=== PATIENT | female | born 1940 ===

== ENCOUNTER 2018-02-01 06:59 | Day surgery (SDC) | payer MEDICARE, BC ==
[2018-01-17 09:36] VITALS: BMI 26.4
[2018-02-01] MEDS ORDERED: ceFAZolin 1 gm in NS 1 GM/100 ML BAG IVPB ONE (07:19)
[2018-02-01] MEDS ORDERED: Lidocaine/Epinephrine 1% 1:100000 10 ML IJ ONE (07:20)
[2018-02-01] MEDS ORDERED: EPINEPHrine 1:1000 Nasal Sol(30mL) ONE (07:20)
[2018-02-01] MEDS ORDERED: Propofol 10 mg/ml Inj (20 ML) ONE (09:42)
[2018-02-01] MEDS ORDERED: Midazolam 2 MG/2 ML VIAL ONE (09:43)
[2018-02-01] MEDS ORDERED: Neostigmine Methylsulfate 3mg/3ml Syringe IV ONE (09:43)
[2018-02-01] MEDS ORDERED: Rocuronium 10 mg/ml (5 ml) ONE (09:43)
[2018-02-01] MEDS ORDERED: HYDROmorphone 0.5 mg/0.5 ml ISec IVP PRN (10:10)
[2018-02-01] MEDS ORDERED: Lactated Ringer's 1,000 ML IV ONE (10:15)
[2018-02-01] MEDS ORDERED: Acetaminophen-Codeine 300/30 mg Tab PO PRN (10:36)
[2018-02-01] MEDS ORDERED: Dextrose 5%/0.45% NS 1,000 ML IV SCH (10:45)
[2018-02-01 12:53] VITALS: TEMP 97.7
[2018-02-01 14:45] VITALS: BP 117/71; PULSE 90; RESP 18; O2SAT 97
--- NOTE | 2018-02-01 23:08 | OP ---
PROCEDURE DATE: 02/01/2018 PREOPERATIVE DIAGNOSES: Deviated septum, enlarged turbinates, and chronic sinusitis. POSTOPERATIVE DIAGNOSES: Deviated septum, enlarged turbinates, and chronic sinusitis. PROCEDURES: Septoplasty, endoscopic bilateral inferior turbinate reduction, endoscopic bilateral ethmoidectomy, endoscopic bilateral maxillary antrostomy. DESCRIPTION OF PROCEDURE: The patient was brought into the room, placed in supine position, anesthesia was initiated through an ET tube. Adrenaline-soaked pledgets were inserted into the nasal cavity, remained there for at least 5 minutes and removed. The patient was draped in usual manner. The septum was injected on both sides with lidocaine with epinephrine. A Antigo incision was made on the left and mucoperichondrial flap was raised. A vertical incision was made in the cartilage leaving a 1.5-cm anterior and superior strut and mucoperichondrial flap was raised on the other side. Deviated portion of the bone and cartilage were removed using forceps and chisel. A quilting suture was used to suture the two flaps together and close the Etienne incision. A 0-degree scope was inserted into the nasal cavity. The inferior turbinates were noted to be enlarged anteriorly, they were reduced inferiorly using forceps. Bleeding was controlled using suction cautery. Next the attention was turned to the left. The middle turbinate was injected with lidocaine with epinephrine and medialized. The uncinate process was medialized using a Handley elevator and removed using forceps. A derider was used to enter the ethmoid bulla inferomedially, going posteriorly to the basal lamella, then anteriorly and superiorly until the ethmoid bulla was removed. The basal lamella was entered. Posterior ethmoid cells were entered and opened. The skull base was identified and followed anteriorly all the way to the area of the anterior ethmoid air cells. A curved suction was used to locate the maxillary antrum, which was noted to be stenosed and opened using forceps. Bleeding was controlled using adrenaline-soaked pledgets and suction cautery. Attention was turned to the other side. The middle turbinate was injected with lidocaine with epinephrine and medialized. The uncinate process was medialized using a Handley elevator and removed using Forceps. The ethmoid bulla was entered inferomedially using a debrider, going posteriorly to the basal lamella, then anteriorly and superiorly until the ethmoid bulla was removed. The basal lamella was entered. Posterior ethmoid cells were entered and opened. The skull base was identified and followed anteriorly all the way to the area of the anterior ethmoid air cells. A curved suction hooked up to navigation was used to locate the maxillary antrum, which was noted to be stenosed and opened using forceps. Bleeding was controlled using suction cautery and adrenaline-soaked pledgets. The stents were placed. The patient was taken off anesthesia and taken to recovery room in a stable manner. Jeramy Gomez MD
== END 2018-02-01 13:30 | disposition home or self-care (01) ==
LOC: C.SDS 06:59
PROVIDERS: ATTEND Otolaryngology
DX: J34.2 Deviated nasal septum (principal); J34.3 Hypertrophy of nasal turbinates; J32.0 Chronic maxillary sinusitis; J32.2 Chronic ethmoidal sinusitis; J32.9 Chronic sinusitis, unspecified
CPT/HCPCS: 30520; 30802; 31254; 31256; 88304; J0690; J1170; J2001; J2250; J2405; J2704; J2710; J3010; J7120

== ENCOUNTER 2018-02-01 18:31 | Observation (INO) | payer MEDICARE, BC ==
[2018-02-01 18:52] VITALS: BMI 268.3
--- NOTE | 2018-02-01 19:17 | C.PDOC ---
History Of Present Illness Patient presents to the ER with a complaint of continuous nasal bleeding. Patient had sinus surgery today and now comes back after having blood clots going down the back his throat and oozing from the bilateral nares. Denies fever , chills, nausea, or vomiting. Time Seen by Provider: 02/01/18 19:08 Chief Complaint (Nursing): ENT Problem History Per: Patient History/Exam Limitations: None Onset/Duration Of Symptoms: Hrs Current Symptoms Are (Timing): Still Present Symptoms Have Been: Continuous Severity: Moderate Pain Scale Rating Of: 4 Anticoagulant/Antiplatlet Use?: No Recent Aspirin Use: No Past Medical History Reviewed: Historical Data, Nursing Documentation, Vital Signs - Medical History PMH: Arthritis, HTN, Hypothyroidism Surgical History: Endoscopy Family History: States: No Known Family Hx - Social History Hx Alcohol Use: No Hx Substance Use: No - Immunization History Hx Tetanus Toxoid Vaccination: No Hx Influenza Vaccination: No Hx Pneumococcal Vaccination: Yes Review Of Systems Constitutional: Negative for: Fever, Chills ENT: Positive for: Other (Epistaxis). Negative for: Throat Pain Respiratory: Negative for: Cough Gastrointestinal: Negative for: Nausea, Vomiting Physical Exam - Physical Exam Appears: Non-toxic, Other (Speaking in complete sentences) Skin: Warm, Dry Head: Normacephalic Nose: Epistaxis, No Deformity, No Septal Hematoma, Other (Blood in bilateral nares) Oral Mucosa: Moist Tongue: Normal Appearing Throat: No Erythema, No Exudate Neck: Supple Chest: Symmetrical, No Tenderness Cardiovascular: Rhythm Regular Respiratory: No Rales, No Rhonchi, No Wheezing Gastrointestinal/Abdominal: Soft, No Tenderness Extremity: Normal ROM Neurological/Psych: Oriented x3 Gait: Steady ED Course And Treatment - Laboratory Results Result Diagrams: 02/01/18 19:29 02/01/18 19:29 Progress Note: Spoke with Dr. Gomez who will come see patient for reevaluation. Disposition Discussed With : Yanick Garcia Comment: accepted the pt on his service and took over the care at 8:11 PM Doctor Will See Patient In The: Hospital Counseled Patient/Family Regarding: Studies Performed, Diagnosis - Disposition Disposition: HOSPITALIZED Disposition Time: 19:17 Condition: FAIR Forms: [facility] (Tajik) - POA Present On Arrival: None - Clinical Impression Clinical Impression: Epistaxis not due to trauma - Scribe Statement The provider has reviewed the documentation as recorded by the Scribe Ron Rodriguez All medical record entries made by the Gaelibaniya were at my direction and personally dictated by me. I have reviewed the chart and agree that the record accurately reflects my personal performance of the history, physical exam, medical decision making, and the department course for this patient. I have also personally directed, reviewed, and agree with the discharge instructions and disposition. Decision To Admit - Pt Status Changed To: Hospital Disposition Of: Observation - . Bed Request Type: Regular Admitting Physician: Yanick Garcia Patient Diagnosis: Epistaxis not due to trauma
[2018-02-01 19:40] LABS: LYMPH # 0.3 K/uL (1.0-4.3); LYMPH % 2.5 % (20.0-40.0); MEAN CORPUSCULAR HEMOGLOBIN 31.7 pg (27.0-31.0); MEAN CORPUSCULAR HGB CONC 34.5 g/dL (33.0-37.0); MEAN PLATELET VOLUME 7.8 fL (7.2-11.7); MONO # 0.1 K/uL (0.0-0.8); MONO % 0.9 % (0.0-10.0); NEUT # 10.6 K/uL (1.8-7.0); NEUT % 96.6 % (50.0-75.0); PLATELET COUNT 227 K/uL (130-400); RBC 4.11 Mil/uL (3.80-5.20)
[2018-02-01 19:42] LABS: PROTHROMBIN TIME 11.1 SECONDS (9.7-12.2)
[2018-02-01 20:09] LABS: BLOOD UREA NITROGEN 17 mg/dL (7-17); CALCIUM 9.9 mg/dl (8.6-10.4); GFR AFRICAN-AMERICAN > 60; GFR NON-AFRICAN AMERICAN > 60
[2018-02-01 20:48] LABS: BANDS 4 % (0-2); LYMPHOCYTE 6 % (20-40); MONOCYTE 1 % (0-10); NEUTROPHIL 89 % (50-75); PLATELET ESTIMATE NORMAL (NORMAL); TOTAL CELLS COUNTED 100
[2018-02-01] MEDS ORDERED: Azithromycin 500 MG in Sodium Chloride 0.9% 250 ML IVPB SCH (22:00)
--- NOTE | 2018-02-01 23:50 | CP.PCM.HP ---
Past Patient History - Past Medical History & Family History Past Medical History?: Yes - Past Social History Smoking Status: Never Smoked - CARDIAC Hx Hypertension: Yes - PULMONARY Hx Respiratory Disorders: No - NEUROLOGICAL Hx Neurological Disorder: Yes (CLIPS CEREBRAL ANEURYSM 2003) - HEENT Hx HEENT Problems: Yes Other/Comment: sinus surgery today as per patient - RENAL Hx Chronic Kidney Disease: No - ENDOCRINE/METABOLIC Hx Hypothyroidism: Yes - HEMATOLOGICAL/ONCOLOGICAL Hx Blood Disorders: No - INTEGUMENTARY Hx Dermatological Problems: No - MUSCULOSKELETAL/RHEUMATOLOGICAL Hx Arthritis: Yes - GASTROINTESTINAL Hx Gastrointestinal Disorders: Yes Hx Gastroesophageal Reflux: Yes - GENITOURINARY/GYNECOLOGICAL Hx Genitourinary Disorders: No - PSYCHIATRIC Hx Substance Use: No - SURGICAL HISTORY Hx Surgeries: Yes Hx Orthopedic Surgery: Yes (BUNIONECTOMY) Other/Comment: 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 BLADDER LIFT - ANESTHESIA Hx Anesthesia: Yes Hx Anesthesia Reactions: No Hx Malignant Hyperthermia: No Meds Allergies/Adverse Reactions: Allergies Allergy/AdvReac Type Severity Reaction Status Date / Time No Known Allergies Allergy Verified 02/01/18 18:51 Results - Vital Signs Recent Vital Signs: Last Vital Signs Temp 98.4 F 02/01/18 22:25 Pulse 102 H 02/01/18 20:49 Resp 20 02/01/18 22:25 BP 137/81 02/01/18 22:25 Pulse Ox 100 02/01/18 22:25 - Labs Result Diagrams: 02/01/18 19:29 02/01/18 19:29 Labs: Laboratory Results - last 24 hr 02/01/18 02/01/18 02/01/18 19:29 19:29 19:29 WBC 11.0 H D RBC 4.11 Hgb 13.0 Hct 37.8 MCV 92.0 MCH 31.7 H MCHC 34.5 RDW 15.0 H Plt Count 227 MPV 7.8 Neut % (Auto) 96.6 H Lymph % (Auto) 2.5 L Wood % (Auto) 0.9 Eos % (Auto) 0.0 Baso % (Auto) 0.0 Neut # (Auto) 10.6 H Lymph # (Auto) 0.3 L Wood # (Auto) 0.1 Eos # (Auto) 0.0 Baso # (Auto) 0.0 Neutrophils % (Manual) 89 H Band Neutrophils % 4 H Lymphocytes % (Manual) 6 L Monocytes % (Manual) 1 Platelet Estimate Normal PT 11.1 INR 1.0 Sodium 141 Potassium 4.4 Chloride 103 Carbon Dioxide 26 Anion Gap 16 BUN 17 Creatinine 0.6 L Est GFR ( Amer) > 60 Est GFR (Non-Af Amer) > 60 Random Glucose 163 H Calcium 9.9
[2018-02-01] MEDS ORDERED: Oxymetazoline 0.05% Nasal Spray (30 ml) NS ONE (23:51)
[2018-02-02] MEDS ORDERED: Oxymetazoline 0.05% Nasal Spray (30 ml) NS ONE (00:16)
[2018-02-02] MEDS ORDERED: Etomidate 20 mg/10ml Inj IV ONE (00:21)
[2018-02-02] MEDS ORDERED: Succinylcholine Chloride 20 mg/ml Syr (5 ml) IV ONE (00:21)
[2018-02-02 01:46] LABS: HEMOGLOBIN 11.8 g/dL (11.0-16.0); MEAN CELL VOLUME 92.8 fL (81.0-99.0); MEAN CORPUSCULAR HEMOGLOBIN 30.7 pg (27.0-31.0); MEAN CORPUSCULAR HGB CONC 33.1 g/dL (33.0-37.0); MEAN PLATELET VOLUME 8.1 fL (7.2-11.7); RBC 3.84 Mil/uL (3.80-5.20); RED CELL DISTRIBUTION WIDTH 14.9 % (11.5-14.5); WHITE BLOOD COUNT 13.9 K/uL (4.8-10.8)
[2018-02-02 04:25] VITALS: RESP 20
[2018-02-02] MEDS ORDERED: Levothyroxine 50 MCG TAB PO SCH (06:30)
[2018-02-02] MEDS ORDERED: Pantoprazole 40 mg EC Tab PO SCH (10:00)
[2018-02-02] MEDS ORDERED: Pneumococcal 23-Valent Vaccine IM ONE (10:00)
--- NOTE | 2018-02-02 10:34 | CP.PCM.PN ---
Subjective - Date & Time of Evaluation Date of Evaluation: 02/02/18 Time of Evaluation: 10:33 - Subjective Subjective: s/p nasal cautery for epistaxis. no bleeding nose: no bleeding a/p: ok to d/c home Objective - Vital Signs/Intake and Output Vital Signs (last 24 hours): Temp Pulse Resp BP Pulse Ox 98.6 F 90 20 100/63 96 02/02/18 07:46 02/02/18 07:46 02/02/18 07:46 02/02/18 07:46 02/02/18 07:46 Intake and Output: 02/02/18 02/02/18 06:59 18:59 Intake Total 1600 Balance 1600 - Medications Medications: Current Medications Azithromycin 500 mg/ Sodium (Chloride) 250 mls @ 167 mls/hr IVPB Q24H POONAM PRN Reason: Protocol Last Admin: 02/01/18 22:30 Dose: 167 mls/hr Ibuprofen (Motrin Tab) 400 mg PO Q8H PRN PRN Reason: Pain, moderate (4-7) Levothyroxine Sodium (Synthroid) 50 mcg PO DAILY@0630 [facility] Last Admin: 02/02/18 05:40 Dose: 50 mcg Losartan Potassium (Cozaar) 50 mg PO DAILY [facility] Last Admin: 02/02/18 10:28 Dose: 50 mg Pantoprazole Sodium (Protonix Ec Tab) 40 mg PO DAILY [facility] Last Admin: 02/02/18 10:28 Dose: 40 mg Pseudoephedrine HCl (Sudafed Tab) 60 mg PO Q6 [facility] Last Admin: 02/02/18 05:45 Dose: 60 mg - Labs Labs: 02/02/18 01:43 02/01/18 19:29 PT 11.1 SECONDS (9.7-12.2) 02/01/18 19:29 INR 1.0 02/01/18 19:29
--- NOTE | 2018-02-02 14:56 | CP.PCM.PN ---
Subjective - Date & Time of Evaluation Date of Evaluation: 02/02/18 Time of Evaluation: 12:00 - Subjective Subjective: post op note patient resting stable vitals no recall, no apparent anesthetic complications. hgb stable no further bleeding. discharged planned for this afternoon, family at bedside Objective - Vital Signs/Intake and Output Vital Signs (last 24 hours): Temp Pulse Resp BP Pulse Ox 98.6 F 90 20 100/63 96 02/02/18 07:46 02/02/18 07:46 02/02/18 07:46 02/02/18 07:46 02/02/18 07:46 Intake and Output: 02/02/18 02/02/18 06:59 18:59 Intake Total 1600 Balance 1600 - Medications Medications: Current Medications Azithromycin 500 mg/ Sodium (Chloride) 250 mls @ 167 mls/hr IVPB Q24H POONAM PRN Reason: Protocol Last Admin: 02/01/18 22:30 Dose: 167 mls/hr Ibuprofen (Motrin Tab) 400 mg PO Q8H PRN PRN Reason: Pain, moderate (4-7) Levothyroxine Sodium (Synthroid) 50 mcg PO DAILY@0630 [facility] Last Admin: 02/02/18 05:40 Dose: 50 mcg Losartan Potassium (Cozaar) 50 mg PO DAILY [facility] Last Admin: 02/02/18 10:28 Dose: 50 mg Pantoprazole Sodium (Protonix Ec Tab) 40 mg PO DAILY [facility] Last Admin: 02/02/18 10:28 Dose: 40 mg Pseudoephedrine HCl (Sudafed Tab) 60 mg PO Q6 [facility] Last Admin: 02/02/18 11:54 Dose: 60 mg - Labs Labs: 02/02/18 01:43 02/01/18 19:29 PT 11.1 SECONDS (9.7-12.2) 02/01/18 19:29 INR 1.0 02/01/18 19:29
--- NOTE | 2018-02-02 16:04 | CP.PCM.PN ---
Subjective - Date & Time of Evaluation Date of Evaluation: 02/02/18 Time of Evaluation: 16:05 - Subjective Subjective: Alert, awake, no sob or chest pains, no bleeding. Objective - Vital Signs/Intake and Output Vital Signs (last 24 hours): Temp Pulse Resp BP Pulse Ox 98.6 F 90 20 100/63 96 02/02/18 07:46 02/02/18 07:46 02/02/18 07:46 02/02/18 07:46 02/02/18 07:46 Intake and Output: 02/02/18 02/02/18 06:59 18:59 Intake Total 1600 480 Balance 1600 480 - Medications Medications: Current Medications Azithromycin 500 mg/ Sodium (Chloride) 250 mls @ 167 mls/hr IVPB Q24H [facility] PRN Reason: Protocol Last Admin: 02/01/18 22:30 Dose: 167 mls/hr Ibuprofen (Motrin Tab) 400 mg PO Q8H PRN PRN Reason: Pain, moderate (4-7) Levothyroxine Sodium (Synthroid) 50 mcg PO DAILY@0630 [facility] Last Admin: 02/02/18 05:40 Dose: 50 mcg Losartan Potassium (Cozaar) 50 mg PO DAILY [facility] Last Admin: 02/02/18 10:28 Dose: 50 mg Pantoprazole Sodium (Protonix Ec Tab) 40 mg PO DAILY [facility] Last Admin: 02/02/18 10:28 Dose: 40 mg Pseudoephedrine HCl (Sudafed Tab) 60 mg PO Q6 [facility] Last Admin: 02/02/18 11:54 Dose: 60 mg - Labs Labs: 02/02/18 01:43 02/01/18 19:29 PT 11.1 SECONDS (9.7-12.2) 02/01/18 19:29 INR 1.0 02/01/18 19:29 Assessment and Plan - Assessment and Plan (Free Text) Assessment: 77 year old female admitted with epitaxis, s/p nasal cauterization , seen and examined. Alert, oriented, denies any bleeding today. Cleared by DR Gomez, plan to discharge home today. Discussed with DR Aure Garcia, agreed with the plan. Advised to avoid any blood thinners and follow up with ENT in 1 week.
[2018-02-02 16:46] VITALS: BP 107/69; PULSE 82; TEMP 98.2; O2SAT 97
--- NOTE | 2018-02-02 19:19 | CP.PCM.PN ---
Subjective - Date & Time of Evaluation Date of Evaluation: 02/02/18 Time of Evaluation: 08:20 - Subjective Subjective: pt seen and examined at bedside no bleeding s/p ENT d/c planning Objective - Vital Signs/Intake and Output Vital Signs (last 24 hours): Temp Pulse Resp BP Pulse Ox 98.2 F 82 20 107/69 97 02/02/18 15:00 02/02/18 15:00 02/02/18 15:00 02/02/18 15:00 02/02/18 15:00 Intake and Output: 02/02/18 02/03/18 18:59 06:59 Intake Total 480 Balance 480 - Labs Labs: 02/02/18 01:43 02/01/18 19:29 PT 11.1 SECONDS (9.7-12.2) 02/01/18 19:29 INR 1.0 02/01/18 19:29 - Constitutional Appears: No Acute Distress - Head Exam Head Exam: ATRAUMATIC, NORMAL INSPECTION, NORMOCEPHALIC - Eye Exam Eye Exam: EOMI, Normal appearance, PERRL Pupil Exam: NORMAL ACCOMODATION, PERRL - ENT Exam ENT Exam: Mucous Membranes Moist - Neck Exam Neck Exam: Full ROM - Respiratory Exam Respiratory Exam: Decreased Breath Sounds - Cardiovascular Exam Cardiovascular Exam: REGULAR RHYTHM, +S1, +S2 - GI/Abdominal Exam GI & Abdominal Exam: Soft, Diminished Bowel Sounds - Rectal Exam Rectal Exam: Deferred - Neurological Exam Neurological Exam: Alert, Awake, Oriented x3 Assessment and Plan (1) Epistaxis not due to trauma Status: Acute - Assessment and Plan (Free Text) Plan: s/p nasal cauterization cleared by ENT Dr Gomez for d/c to home today pt advised to avoid any blood thinners outpt f/u with me and ENT as instructed pt states she understands and agrees to plan of care croby as ordered
--- NOTE | 2018-02-15 20:30 | OP ---
PROCEDURE DATE: 02/02/2018 PREOPERATIVE DIAGNOSIS: Epistaxis. POSTOPERATIVE DIAGNOSIS: Epistaxis. PROCEDURE: Endoscopic cauterization of epistaxis. SIGNIFICANT FINDINGS: Epistaxis. DESCRIPTION OF PROCEDURE: The patient was brought into the room, placed in a supine position, anesthesia was initiated through an ET tube. Splints and stents were taken out of the nose. A 0-degree scope was inserted into the nasal cavity on both sides. The posterior aspect of the lateral nasal voluntarily was cauterized on both sides, to cauterize the sphenopalatine artery. At that point, the patient was valsalva'd. No bleeding was noted. The area was irrigated. No bleeding was noted. The scope was taken out of the nose. The patient was taken off anesthesia and taken to the recovery room in stable manner. Jeramy Gomez MD
== END 2018-02-02 17:03 | disposition home or self-care (01) ==
LOC: C.ER 18:31 → C.9E 20:09 → C.3T 21:00
PROVIDERS: ADMIT Internal Medicine Nephrology; ATTEND Internal Medicine Nephrology
DX: R04.0 Epistaxis (principal); K21.9 Gastro-esophageal reflux disease without esophagitis; I10 Essential (primary) hypertension; E03.9 Hypothyroidism, unspecified
CPT/HCPCS: 31238; 36415; 80048; 85025; 85027; 85610; 86850; 86900; 86920; 90732; 96365; 97116; 97162; 99284; C2615; G0009; G0378; G8978; G8979; J0456; J2270; J3010; J7030; J7040

== ENCOUNTER 2018-09-05 11:41 | Outpatient (CLI) | payer MEDICARE, BC | END 2018-09-05 11:42 | disposition home or self-care (01) | LOC: C.CTH 11:42 | DX: R04.0 Epistaxis (principal) ==